=== PATIENT | female | born 1940 | race Caucasian/White ===

== ENCOUNTER 2020-02-18 20:25 | Observation (INO) | payer OTHER, MEDICAID ==
[~2020-02-18] VITALS: Ht 134.6 cm; Wt 33.1 kg
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
[2020-02-18] MEDS ORDERED: IV RINGERS SOLUTION,LACTATED 1,000 ML IV SCH (21:00)
[2020-02-18 21:37] LABS: BASO % 1 % (0-3); EOS % 0 % (0-3); HEMATOCRIT 31.4 % (36.0-47.0); HEMOGLOBIN 10.4 g/dL (12.0-15.5); LYMPH # 1.8 x10^3/uL (1.0-4.8); LYMPH % 28 % (24-48); MEAN CORPUSCULAR HEMOGLOBIN 32 pg (25-35); MEAN CORPUSCULAR HGB CONC 33 g/dL (31-37); MEAN CORPUSCULAR VOLUME 96 fL (79-100); MONO # 0.4 x10^3/uL (0.0-1.1); MONO % 7 % (0-9); NEUT % 64 % (31-73); PLATELET COUNT 239 x10^3/uL (140-400); RED BLOOD COUNT 3.26 x10^6/uL (3.50-5.40); RED CELL DISTRIBUTION WIDTH 14.5 % (11.5-14.5); WHITE BLOOD COUNT 6.3 x10^3/uL (4.0-11.0)
[2020-02-18 22:00] LABS: BARBITURATES NEG (NEG); BENZODIAZEPINES NEG (NEG); CANNABINOIDS NEG (NEG); COCAINE NEG (NEG); METHADONE NEG (NEG); OPIATES NEG (NEG); PHENCYCLIDINE NEG (NEG)
[2020-02-18 22:02] LABS: AMPHETAMINE/METHAMPHETAMINE NEG (NEG); CALCIUM 8.6 mg/dL (8.5-10.1); CREATININE 1.6 mg/dL (0.6-1.0); POTASSIUM 3.1 mmol/L (3.5-5.1)
[2020-02-18 22:13] LABS: ALBUMIN 2.7 g/dL (3.4-5.0); DIRECT BILIRUBIN 0.1 mg/dL (0.0-0.2); MAGNESIUM 1.8 mg/dL (1.8-2.4); TOTAL BILIRUBIN 0.2 mg/dL (0.2-1.0); TOTAL PROTEIN 6.7 g/dL (6.4-8.2)
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
[2020-02-18 22:26] LABS: CLARITY,URINE HAZY; COLOR,URINE YELLOW
[2020-02-18 22:27] LABS: BACTERIA,URINE FEW /HPF (0-FEW); BILIRUBIN,URINE NEG (NEG); GLUCOSE,URINE NEG (NEG); NITRITE,URINE NEG (NEG); RBC,URINE 0 /HPF (0-2); UROBILINOGEN,URINE 0.2 mg/dL (0.2 mg/dL)
[2020-02-18] MEDS ORDERED: FUROSEMIDE 40 MG TABLET PO ONE (23:15)
[2020-02-18] MEDS ORDERED: POTASSIUM CHLORIDE 20 MEQ TABLET.ER. PO ONE (23:15)
[2020-02-18] MEDS ORDERED: ENOXAPARIN 40 MG/0.4 ML SYRINGE. SQ ONE (23:45)
[2020-02-19] MEDS ORDERED: ONDANSETRON PF 4 MG/2 ML VIAL. IVP PRN (00:30)
--- NOTE | 2020-02-19 01:20 | NUR ---
Admission: The patient, ALEXIA GRAHAM, 79 y/o, F admitted by CHANEL WOODRUFF MD, was given written information regarding hospital policies, unit procedures and contact persons. Pt arrived to room 124 via gurney, accompanied by [facility] and nursing sup. Pt came through ED for psych eval, but admitted to medical floor for Dx: CHF, hypokalemia, depression, SI. Discussed POC, pt V/U but will require reinforcement. Call ruff at bedside. Valuables were checked and logged. Placed on room closet.
[2020-02-19 01:32] VITALS: BP 165/68
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
[2020-02-19] MEDS ORDERED: MEMA5TAB PO (04:12)
[2020-02-19] MEDS ORDERED: CARB1TAB46 PO (04:12)
[2020-02-19] MEDS ORDERED: GLYC113C2 TP (04:12)
[2020-02-19] MEDS ORDERED: ALEN70TA6 PO (04:12)
[2020-02-19] MEDS ORDERED: SERT50TA PO (04:12)
[2020-02-19] MEDS ORDERED: MULT-245 PO (04:12)
[2020-02-19] MEDS ORDERED: LEVO25TA4 PO (04:12)
[2020-02-19] MEDS ORDERED: MIRT15TA PO (04:12)
[2020-02-19] MEDS ORDERED: IBUP200T44 PO (04:12)
[2020-02-19] MEDS ORDERED: ONDA-84 PO (04:12)
[2020-02-19] MEDS ORDERED: POTA10TA5 PO (04:12)
[2020-02-19] MEDS ORDERED: ACET325T9 PO (04:12)
[2020-02-19] MEDS ORDERED: CELE100C PO (04:12)
[2020-02-19] MEDS ORDERED: AMLO5TAB10 PO (04:12)
[2020-02-19] MEDS ORDERED: POLY15DR27 EACHEYE (04:12)
[2020-02-19] MEDS ORDERED: MENT118G TP (04:12)
[2020-02-19] MEDS ORDERED: OXYB5TAB10 PO (04:12)
[2020-02-19] MEDS ORDERED: GABA-586 PO (04:12)
--- NOTE | 2020-02-19 06:22 | EKG ---
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
--- NOTE | 2020-02-19 06:35 | NUR ---
Received partial med list from pt's facility, placed calls x2 to request complete med list be faxed. Spoke with two different RN's, still awaiting fax.
[2020-02-19 06:48] VITALS: BP 167/81
[2020-02-19 07:51] LABS: CALCIUM 8.8 mg/dL (8.5-10.1); CREATININE 1.2 mg/dL (0.6-1.0); GFR 43.2; POTASSIUM 3.3 mmol/L (3.5-5.1)
[2020-02-19] MEDS ORDERED: IPRATRPIUM/ALBUTEROL 0.5/2.5MG 3 ML NEBU. NEB SCH (08:00)
[2020-02-19] MEDS: IPRATROPIUM/ALBUTEROL 20/100mcg/INH INHALER. INH SCH ×4 (09:19→20:16)
[2020-02-19 11:00] VITALS: BP 145/59
[2020-02-19] MEDS: SERTRALINE 50 MG TABLET. PO SCH (11:10)
[2020-02-19] MEDS: LEVOTHYROXINE 25 MCG TABLET. PO SCH (11:10)
[2020-02-19] MEDS: MEMANTINE 5 MG TABLET. PO SCH ×2 (11:10→20:15)
[2020-02-19] MEDS: amLODIPine BESYLATE 5 MG TABLET PO SCH (11:11)
[2020-02-19] MEDS: ACETAMINOPHEN 325 MG TABLET PO SCH ×3 (11:11→20:16)
[2020-02-19] MEDS: CARBIDOPA/LEVODOPA 10/100MG TABLET PO SCH ×2 (14:43→20:16)
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
[2020-02-19 16:00] VITALS: BP 123/50
[2020-02-19] MEDS: POTASSIUM CHLORIDE 20 MEQ TABLET.ER. PO SCH (17:40)
[2020-02-19 20:10] VITALS: BP 119/54
[2020-02-19] MEDS: MIRTAZAPINE 15 MG TABLET PO SCH (20:16)
[2020-02-19] MEDS: OXYBUTYNIN CHLORIDE 5 MG TABLET PO SCH (20:16)
[2020-02-19] MEDS: ENOXAPARIN 30 MG/0.3 ML SYRINGE. SQ SCH (20:16)
[2020-02-20 06:40] VITALS: BP 178/83
[2020-02-20] MEDS: MEMANTINE 5 MG TABLET. PO SCH ×2 (08:06→20:12)
[2020-02-20] MEDS: SERTRALINE 50 MG TABLET. PO SCH (08:06)
[2020-02-20] MEDS: POTASSIUM CHLORIDE 20 MEQ TABLET.ER. PO SCH (08:06)
[2020-02-20] MEDS: amLODIPine BESYLATE 5 MG TABLET PO SCH (08:07)
[2020-02-20] MEDS: IPRATROPIUM/ALBUTEROL 20/100mcg/INH INHALER. INH SCH ×4 (08:07→20:00)
[2020-02-20] MEDS: ACETAMINOPHEN 325 MG TABLET PO SCH ×3 (08:07→20:12)
[2020-02-20] MEDS: LEVOTHYROXINE 25 MCG TABLET. PO SCH (08:07)
[2020-02-20] MEDS: CARBIDOPA/LEVODOPA 10/100MG TABLET PO SCH ×3 (08:08→20:12)
--- NOTE | 2020-02-20 08:13 | NUR ---
IP: patient PUI for COVID -19, requires contact and airborne precautions.
[2020-02-20 09:57] LABS: BASO % 0 % (0-3); EOS % 0 % (0-3); HEMATOCRIT 32.9 % (36.0-47.0); LYMPH # 1.4 x10^3/uL (1.0-4.8); LYMPH % 25 % (24-48); MEAN CORPUSCULAR HEMOGLOBIN 32 pg (25-35); MEAN CORPUSCULAR HGB CONC 33 g/dL (31-37); MEAN CORPUSCULAR VOLUME 96 fL (79-100); MONO # 0.4 x10^3/uL (0.0-1.1); MONO % 7 % (0-9); NEUT % 68 % (31-73); PLATELET COUNT 263 x10^3/uL (140-400); RED BLOOD COUNT 3.41 x10^6/uL (3.50-5.40); RED CELL DISTRIBUTION WIDTH 14.4 % (11.5-14.5); WHITE BLOOD COUNT 5.9 x10^3/uL (4.0-11.0)
[2020-02-20 10:14] LABS: CALCIUM 8.8 mg/dL (8.5-10.1); GFR 53.3; POTASSIUM 3.7 mmol/L (3.5-5.1)
[2020-02-20 10:49] VITALS: BP 172/69
--- NOTE | 2020-02-20 12:13 | PN ---
DATE: 02/20/2020 ATTENDING PHYSICIAN: Dr. Woodruff. SUBJECTIVE: The patient is confused. She still has a flat affect. She is sleepy. She has no new somatic complaints. OBJECTIVE FINDINGS: VITAL SIGNS: Blood pressure today is 178/83, pulse 88 and regular, temperature 98.3 degrees Fahrenheit, oxygen saturation 98% on room air. HEENT: Head is without trauma. Pupils are reactive. Sclerae nonicteric. Oropharynx clear. Mucous membranes still a bit dry. NECK: Supple, no bruits. LUNGS: Shallow respirations. CARDIOVASCULAR: Showed regular heart tones. No gallops. ABDOMEN: Soft, scaphoid. No organomegaly. Bowel sounds were hypoactive. EXTREMITIES: Showed contractures. She is nonambulatory. SKIN: Warm and dry. LABORATORY DATA: Repeat hemoglobin today is 11 g/dL, white count 5900. Chemistry panel showed potassium replaced up to 3.7 mEq, creatinine is 1.1 mg/dL. ASSESSMENT: 1. An 79-year-old female from assisted with profound dementia. 2. Suicidal ideation without any active attempt. 3. Major depression with anxiety. 4. Dehydration. 5. Electrolyte abnormalities, hypokalemia, corrected. 6. Alzheimer's dementia. 7. Polyneuropathy. 8. Systolic hypertension of the elderly. PLAN: 1. Comfort measures with pain meds p.r.n. 2. Await COVID-19 swab. 3. mortgage branch manager to discuss with the family. DISPOSITION: The daughter has stated she wanted her to go to [facility]. She is a DNR per advanced directive. We will respect her wishes. CHANEL WOODRUFF MD DR: GREGORY/jael JOB#: [id number] / [id number]
[2020-02-20] MEDS: MORPHINE SULFATE 2 MG/ML DISP.SYRIN. IV PRN ×2 (14:44→17:31)
--- NOTE | 2020-02-20 15:06 | NUR ---
PATIENT WAS CALM AND COOPERATIVE WITH ENCOURAGEMENT UPON ASSESSMENT AND MEDICATION ADMINISTRATION, PATIENT C/O BACK PAIN, MEDS ADMINISTERED CRUSHED IN PUDDING. PATIENT IS CONFUSED AND FORGETFUL AT TIMES, REORIENTED AND INSTRUCTED TO CALL FOR ASSIST, PATIENT DEMONSTRATED UNDERSTANDING. PATIENT GETS UP FOR ADLS WITH ASSIST X1. PATIENT HAD POOR APPETITE THIS AM DURING BREAKFAST AND ONLY HAD A FEW BITES OF PUDDING, HOWEVER PATIENT ENJOYED LUNCH AND STATED " IT WAS TASTY". PATIENT STILL EXPRESSING SI THOUGHT, PATIENT STATED " WHY DON'T YOU LET ME ", PATIENT IS CURRENTLY ON 1:1 OBSERVATION. PATIENT IS CURRENTLY ASLEEP COMFORTABLY IN A BED. WILL CONTINUE TO MONITOR.
[2020-02-20 16:28] VITALS: BP 169/66
[2020-02-20 19:55] VITALS: BP 160/76
[2020-02-20] MEDS: OXYBUTYNIN CHLORIDE 5 MG TABLET PO SCH (20:12)
[2020-02-20] MEDS: MIRTAZAPINE 15 MG TABLET PO SCH (20:12)
[2020-02-20] MEDS: ENOXAPARIN 30 MG/0.3 ML SYRINGE. SQ SCH (20:14)
[2020-02-21] MEDS: MORPHINE SULFATE 2 MG/ML DISP.SYRIN. IV PRN ×5 (02:54→23:02)
[2020-02-21 05:54] VITALS: BP 173/91
--- NOTE | 2020-02-21 09:19 | PN ---
DATE: 02/21/2020 ATTENDING PHYSICIAN: Dr. Woodruff. SUBJECTIVE: The patient remains confused. She is not aware of person, place or time. She has a flat affect. She has no new somatic complaints. She is lying in bed, in the position. Her COVID-19 swab came back negative. OBJECTIVE FINDINGS: VITAL SIGNS: Her blood pressure is 160/76, pulse is 68 and regular. She is afebrile. Oxygen saturation is 98% on room air. HEENT: Head is without trauma. Pupils are reactive. Orbits are a bit sunken. NECK: Supple, no bruits or stridor. LUNGS: Shallow respirations, otherwise good breath sounds. CARDIOVASCULAR: Showed distant heart tones. No gallops. Peripheral pulses are palpable and full. ABDOMEN: Soft, scaphoid, nontender, no distention. Bowel sounds were normal. EXTREMITIES: Showed muscle wasting contractions. She is in a position. FOLLOW-UP LABORATORY STUDIES: Potassium was replaced up to 3.7 mEq, creatinine is improved to 1.0 mg/dL. ASSESSMENT: 1. An 79-year-old female with profound dementia. 2. Mild dehydration. 3. Hypokalemia, corrected. 4. Major depression with anxiety. 5. Suicidal ideation without any attempt. 6. Systolic hypertension of the elderly. 7. Polyneuropathy. PLAN: 1. Comfort measures. 2. We can remove quarantine. 3. She remains a DNR per advanced directive. 4. We are looking for detention placement when available. CHANEL WOODRUFF MD DR: GREGORY/jael JOB#: [id number] / [id number]
[2020-02-21] MEDS: SERTRALINE 50 MG TABLET. PO SCH (09:59)
[2020-02-21] MEDS: ACETAMINOPHEN 325 MG TABLET PO SCH ×3 (09:59→19:48)
[2020-02-21] MEDS: amLODIPine BESYLATE 5 MG TABLET PO SCH (10:00)
[2020-02-21] MEDS: MEMANTINE 5 MG TABLET. PO SCH ×2 (10:00→19:48)
[2020-02-21] MEDS: POTASSIUM CHLORIDE 20 MEQ TABLET.ER. PO SCH (10:00)
[2020-02-21] MEDS: IPRATROPIUM/ALBUTEROL 20/100mcg/INH INHALER. INH SCH ×4 (10:03→20:00)
[2020-02-21] MEDS: CARBIDOPA/LEVODOPA 10/100MG TABLET PO SCH ×3 (10:03→19:48)
[2020-02-21] MEDS: LEVOTHYROXINE 25 MCG TABLET. PO SCH (10:03)
[2020-02-21 10:47] VITALS: BP 158/65
--- NOTE | 2020-02-21 15:20 | NUR ---
Patient's PIV is not flushing. PIV discontinued and new 20g PIV inserted in right forearm. Will continue to monitor.
[2020-02-21 16:12] VITALS: BP 156/74
--- NOTE | 2020-02-21 17:45 | NUR ---
NURSING NOTE SOA/CHEST PAIN THIS NURSE WAS WALKING BY PT ROOM, PT STATED "I CANT BREATHE" AND POINTING AT HER CHEST. PT BP 170/78 OXYGEN 97%. PT NURSE IN ANOTHER ROOM, THIS NURSE PHONED DR WOODRUFF, ORDER OBTAINED FOR EKG. WILL NOTIFY PT NURSE AND CONTINUE TO MONITOR. ADALID CID.
[2020-02-21] MEDS: OXYBUTYNIN CHLORIDE 5 MG TABLET PO SCH (19:48)
[2020-02-21] MEDS: MIRTAZAPINE 15 MG TABLET PO SCH (19:48)
[2020-02-21] MEDS: ENOXAPARIN 30 MG/0.3 ML SYRINGE. SQ SCH (19:49)
[2020-02-21 20:30] VITALS: BP 196/70
[2020-02-21 23:06] VITALS: BP 177/79
--- NOTE | 2020-02-21 23:29 | PDOC ---
Exam Note: Hitesh Note: Please also refer to the separate dictated note~for this date of service dictated separately.~Patient seen individually. Discussed the patient with Nursing staff reviewed the chart.~Reviewed interim history and current functioning. Reviewed vital signs,~Labs/ Radiology~and current medications noted below. Continue current treatment with the changes noted in the dictated addendum note Assessment: Vital Signs/I&O: Vital Signs Date Time Temp Pulse Resp B/P (MAP) Pulse Ox O2 Delivery O2 Flow Rate FiO2 02/21/20 23:06 98.9 80 20 177/79 (111) 97 Room Air 02/20/20 10:49 98.0 I & O 02/20/20 02/20/20 02/21/20 15:00 23:00 07:00 Intake Total 120 ml 320 ml Output Total 1 ml Balance 119 ml 320 ml Current Medications: I have reviewed the current psychotropics carefully including drug interactions. Risk benefit ratio favors no change other than as noted in my dictated progress note. Diagnosis: Problems: (1) Depression (2) CHF (congestive heart failure) REBECA HERNANDEZ MD Feb 21, 2020 23:29
--- NOTE | 2020-02-22 00:33 | CONS ---
DATE OF CONSULTATION: 02/21/2020 PSYCHIATRIC CONSULTATION IDENTIFYING DATA: The patient is an 79-year-old female seen for a psychiatric consultation on [address], room [address] Kelly on account of the patient's depression within the context of her dementia. The patient was referred from [facility] by her primary care physician because of worsening symptoms of depression, making statements she wanted to . The patient had failed outpatient psychiatric interventions. Behaviors were deemed dangerous. Potential risk to herself admitted by her family who is her DPOA for psychiatric stabilization. The patient was seen individually on telehealth rounds. Discussed with ADALID Galindo. Reviewed the chart. CHIEF COMPLAINT: "I don't know." The patient is quite withdrawn, not very verbally interactive, confused. Per nursing staff at times she has been oriented x 2, other times just x 1 as she was earlier today when I interviewed her on telehealth rounds. HISTORY OF PRESENT ILLNESS: The patient has a history of dementia, Alzheimer's vascular type. She has been residing at [facility]. More recently getting more depressed, hopeless, helpless, worthless, isolative, withdrawn. She has had sleep and appetite changes, suicidal ideation, making statements she wanted to end her life. She has been somewhat paranoid. No active homicidal ideation. No symptoms of bipolar disorder. PAST PSYCHIATRIC HISTORY: As above. MEDICAL HISTORY: Positive for arthritis, malnutrition. CODE STATUS: DNR. DRUG ALLERGIES: Negative. ACCU-CHEKS: None. DIET: Dysphagia 2. She takes her meds floated in yogurt or pudding, ambulates in a wheelchair. CURRENT PSYCHOTROPICS: Remeron 15 mg at bedtime, Zoloft 150 mg a day, Namenda 5 mg b.i.d. She is also on Sinemet 10/100 mg t.i.d. FAMILY HISTORY: Noncontributory. SOCIAL HISTORY: No history of alcohol, drug abuse, physical, sexual or elder abuse. She is not known to be a perpetrator. REACTION TO HOSPITALIZATION: The patient oblivious of this. REVIEW OF SYSTEMS: No CV, , pulmonary, eye, ENT system symptoms on review. Reliability poor. MENTAL STATUS EXAMINATION: Oriented to herself. Insight, judgment, recent and remote memory, attention, concentration, fund of knowledge poor, consistent with her diagnoses. LABORATORY DATA: Reviewed. IMPRESSION: Major neurocognitive disorder, Alzheimer, vascular with delusion, depression, behavioral disturbance; anxiety disorder, unspecified; impulse control disorder, unspecified. Rest as above. PLAN: Admit to Geropsychiatry Unit at [facility]. I will see the patient daily individually from a psychiatric standpoint and she may need to be transferred to the [facility] when she is deemed medically stable and if symptoms persist we will monitor her baseline, then adjust psychotropics as clinically indicated. MAN Jessica HERNANDEZ MD DR: ANDREA/jael JOB#: [id number] / [id number]
[2020-02-22 05:21] VITALS: BP 160/90
--- NOTE | 2020-02-22 06:07 | EKG ---
[facility] [address] [place] [address] Test Date: 2020-02-21 Test Time: 17:58:08 Pat Name: ALEXIA GRAHAM Department: Room: 124 A Gender: F Porter Baggage: : 1940 Requested By: CHANEL WOODRUFF Order Number: [id number] Reading MD: Measurements Intervals [place] Rate: 89 P: 63 IN: 120 QRS: 70 QRSD: 82 T: 86 QT: 332 QTc: 405 Interpretive Statements SINUS RHYTHM LEFT ATRIAL ABNORMALITY AMPLITUDE CRITERIA FOR [facility] QRS(T) CONTOUR ABNORMALITY CONSIDER ANTEROLATERAL MYOCARDIAL DAMAGE CONSIDER INFERIOR MYOCARDIAL DAMAGE ABNORMAL ECG RI6.01 No previous ECG available for comparison
[2020-02-22] MEDS: IPRATROPIUM/ALBUTEROL 20/100mcg/INH INHALER. INH SCH ×4 (08:20→19:52)
[2020-02-22] MEDS: ACETAMINOPHEN 325 MG TABLET PO SCH ×3 (08:20→19:50)
[2020-02-22] MEDS: LEVOTHYROXINE 25 MCG TABLET. PO SCH (08:21)
[2020-02-22] MEDS: CARBIDOPA/LEVODOPA 10/100MG TABLET PO SCH ×3 (08:21→19:51)
[2020-02-22] MEDS: amLODIPine BESYLATE 5 MG TABLET PO SCH (08:21)
[2020-02-22] MEDS: SERTRALINE 50 MG TABLET. PO SCH (08:21)
[2020-02-22] MEDS: MEMANTINE 5 MG TABLET. PO SCH ×2 (08:21→19:50)
[2020-02-22] MEDS: POTASSIUM CHLORIDE 20 MEQ TABLET.ER. PO SCH (08:22)
--- NOTE | 2020-02-22 10:03 | EKG ---
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
[2020-02-22 11:17] VITALS: BP 151/70
[2020-02-22 14:58] VITALS: BP 145/62
[2020-02-22] MEDS: MORPHINE SULFATE 2 MG/ML DISP.SYRIN. IV PRN (15:09)
[2020-02-22] MEDS ORDERED: traZODone 50 MG TABLET. PO PRN (18:00)
[2020-02-22] MEDS: MIRTAZAPINE 15 MG TABLET PO SCH (19:50)
[2020-02-22] MEDS: OXYBUTYNIN CHLORIDE 5 MG TABLET PO SCH (19:50)
[2020-02-22] MEDS: ENOXAPARIN 30 MG/0.3 ML SYRINGE. SQ SCH (19:53)
[2020-02-22 20:00] VITALS: BP 164/73
--- NOTE | 2020-02-22 22:11 | PN ---
DATE: 02/22/2020 SUBJECTIVE: The patient is an 79-year-old female patient who apparently was admitted with suicidal ideation without any attempt. She was found to be mildly dehydrated and hypokalemic and for her major depression and anxiety, she was seen by Dr. Daniels and who adjusted her psychotropic medication. When I saw her this afternoon, she was resting slightly propped up in bed, in no apparent distress. She was pale, extremely cachectic, complaining of abdominal pain and back pain. OBJECTIVE: VITAL SIGNS: Her heart rate was 93, blood pressure was 145/62, temperature was 98.6, respiratory rate 20, and oxygen saturation was 95%. HEAD, EYES, EARS, NOSE AND THROAT: Showed normocephalic, atraumatic. NECK: Supple. CARDIAC: Normal first and second heart sounds. No gallop or murmur. CHEST: Clear to auscultation. No crepitation or rhonchi. ABDOMEN: Scaphoid, soft, nontender. NEUROLOGIC: She is profoundly demented, but without any obvious lateralizing sign. All her cranial nerves are intact. She moves upper extremities without difficulty; however, she is mostly bedbound, chair bound. Her intake over the last 24 hours was 440. No output was recorded. LABORATORY DATA: Showed white cell count 5900, hemoglobin 11, hematocrit 33, MCV 96, and platelet count 263,000. Her chemistry showed a serum sodium 141, potassium 3.7, chloride 104, bicarbonate 31, anion gap of 6, BUN 28, creatinine 1, estimated GFR was 53 mL per minute. Her glucose was 91, calcium was 8.8. Her prothrombin time, INR and aPTT were normal. D-dimer was slightly elevated. Urinalysis showed small amount of proteinuria, but otherwise unremarkable and her toxic screen was negative. Her coronavirus-2 PCR was not detected. ASSESSMENT: 1. In summary, this is an 79-year-old female patient with profound dementia. 2. Dehydration and acute kidney injury, resolved. 3. Hypokalemia, resolved. 4. Major depression with anxiety. 5. Suicidal ideation without any attempt. 6. Systolic hypertension. 7. Polyneuropathy. PLAN: She is scheduled to be discharged to [facility] tomorrow to go on hospice care. LETI GARZA MD DR: SERGEY/jael JOB#: [id number] / [id number]
--- NOTE | 2020-02-22 22:35 | PDOC ---
Exam Note: Hitesh Note: Subjective: The patient was reviewed on telehealth rounds due to COVID-19 restrictions on the unit in the evening of 02/22/2020 with Mateo CORDOBA. Discussed with nursing staff, reviewed the chart. The patient remains confused. Per nursing staff she is noted to be needy and attention seeking. She was having various somatic symptoms earlier in the day, complained of choking, stated she has fallen but none of this was true. She slept reasonably at night after she received morphine at 7.50 p.m. and then 11 p.m. We will go ahead and add trazodone 50 mg h.s. insomnia, may repeat x1. She also gets somewhat psychotic and agitated and we will add Zyprexa 2.5 mg q.2h. p.r.n. psychosis and agitated maximum 7.5 mg in 24 hours. Review of Systems: Ambulation impaired. She has vague somatic symptoms. No CV, , pulmonary system symptoms on review. Mental Status Exam: Oriented to herself. 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 We are unable to corroborate this. She seems a little more lucid today as compared to yesterday, less paranoid as well. Abstraction fair. Computation impaired. Language functions intact. Attention span short. Mood and affect somewhat anxious, labile. Laboratory Data: Reviewed. Impression: Major neurocognitive disorder, Alzheimer, vascular with delusion, depression, behavioral disturbance. Anxiety disorder unspecified. Rest unchanged. Plan: Add trazodone and Zyprexa as noted. Maintain Remeron 15 mg h.s. and Zoloft 150 mg a day. May need to adjust Namenda. If behavioral dyscontrol persists, may consider [facility] when she is medically stable. Assessment: Vital Signs/I&O: Vital Signs Date Time Temp Pulse Resp B/P (MAP) Pulse Ox O2 Delivery O2 Flow Rate FiO2 02/22/20 21:00 Room Air 02/22/20 20:00 98.1 100 20 164/73 (103) 96 02/20/20 10:49 98.0 I & O 02/21/20 02/21/20 02/22/20 14:59 22:59 06:59 Intake Total 480 ml 240 ml 120 ml Balance 480 ml 240 ml 120 ml Current Medications: Meds: Current Medications Medications (Trade) Dose Ordered Sig/Kamilah Route PRN Reason Start Time Stop Time Status Last Admin Dose Admin Olanzapine (ZyPREXA ZYDIS) 2.5 mg PRN Q2HR PRN PO PSYCHOSIS 02/22/20 18:00 02/22/20 19:50 Trazodone HCl (Desyrel) 50 mg PRN QHS PRN PO INSOMNIA, MAY REPEAT X1 02/22/20 18:00 02/22/20 19:50 I have reviewed the current psychotropics carefully including drug interactions. Risk benefit ratio favors no change other than as noted in my dictated progress note. Diagnosis: Problems: (1) Major neurocognitive disorder (2) Dementia in Alzheimer's disease with depression (3) Dementia in Alzheimer's disease with delusions (4) Dementia of the Alzheimer's type with early onset with behavioral disturbance (5) Dementia, vascular, with delusions (6) Dementia, vascular, with depression (7) Anxiety disorder, unspecified (8) Impulse control disorder, unspecified REBECA HERNANDEZ MD Feb 22, 2020 22:35
[2020-02-22 23:05] VITALS: BP 110/59
[2020-02-23] MEDS: MORPHINE SULFATE 2 MG/ML DISP.SYRIN. IV PRN (02:27)
--- NOTE | 2020-02-23 05:50 | NUR ---
Pt was calling out during change of shift. When pt was asked what can be done for her she stated "I don't need anything" Pt was very anxious and then continued to yell out. Pt appeared anxious upon assessment but was cooperative. Pt was given Zyprexa w/ HS meds as indicated. Pt took meds crushed in vanilla ice cream and tolerated them well. Pt calmed down after PRN Zyprexa but then later complained of pain in her neck and received PRN Morphine. Pt then rested comfortably in the night w/ less behaviors.
[2020-02-23 06:22] VITALS: BP 192/95
[2020-02-23] MEDS: LEVOTHYROXINE 25 MCG TABLET. PO SCH (08:36)
[2020-02-23] MEDS: ACETAMINOPHEN 325 MG TABLET PO SCH (08:36)
[2020-02-23] MEDS: POTASSIUM CHLORIDE 20 MEQ TABLET.ER. PO SCH (08:36)
[2020-02-23] MEDS: SERTRALINE 50 MG TABLET. PO SCH (08:36)
[2020-02-23] MEDS: CARBIDOPA/LEVODOPA 10/100MG TABLET PO SCH (08:36)
[2020-02-23 08:37] VITALS: BP 192/95
[2020-02-23] MEDS: IPRATROPIUM/ALBUTEROL 20/100mcg/INH INHALER. INH SCH (08:37)
[2020-02-23] MEDS: MEMANTINE 5 MG TABLET. PO SCH (08:37)
[2020-02-23] MEDS: amLODIPine BESYLATE 5 MG TABLET PO SCH (08:37)
--- NOTE | 2020-02-23 11:07 | NUR ---
Pt sleeping in her bed when approached for AM med pass and assessment. She was easily aroused and was able to take her meds crushed in vanilla pudding. Pt denied any pain or SOA. PRN zyprexa given prior to being transferred to [facility]. Pt quickly went back to sleep after interaction.
--- NOTE | 2020-02-23 11:36 | NUR ---
Pt discharged to [facility]. Report given to Mackenzie. Pt discharge instructions and prescriptions given to EMS. Family notified of pt d/c.
[2020-02-23] MEDS ORDERED: IPRA4AER INH (11:51)
--- NOTE | 2020-02-23 13:28 | DS ---
DATE OF DISCHARGE: 02/23/2020 HOSPITAL COURSE: The patient is an 79-year-old female patient who was admitted with suicidal ideation without any attempt. She was found to be mildly dehydrated, hypokalemic and for her major depression and anxiety, she was seen by Dr. Daniels, who made adjustment to her psychotropic medication. PHYSICAL EXAMINATION: GENERAL: When I saw her today, she looked well and was clearly in no apparent respiratory distress. No pallor, jaundice, cyanosis or thyromegaly. No jugular venous distention. No limb edema. VITAL SIGNS: Her heart rate was 73, blood pressure was 192/95, temperature 97.6, respiratory rate was 16, and oxygen saturation was 98%. HEAD, EYES, EARS, NOSE AND THROAT: Showed normocephalic, atraumatic. NECK: Supple. HEART: Showed normal first and second heart sounds. No gallop or murmur. CHEST: Clear to auscultation. No crepitation or rhonchi. ABDOMEN: Soft, nontender. NEUROLOGIC: She has profound dementia; however, all her cranial nerves are intact. She moves upper extremities without difficulty. She is mostly bedbound, chair bound. Her intake over the last 24 hours was 814, output was recorded. LABORATORY DATA: This morning showed serum sodium 141, potassium 3.7, chloride 104, bicarbonate 31, anion gap of 6, BUN 28, creatinine 1, estimated GFR was 53 mL per minute. Her glucose was 91, calcium was 8.8. DISCHARGE MEDICATIONS: She was discharged to [facility] to continue on acetaminophen 650 mg 3 times a day, amlodipine 5 mg once a day, carbidopa/levodopa 10/100, 3 times a day, ipratropium bromide, albuterol sulfate, Combivent Respimat inhaler 1 puff 4 times a day, levothyroxine sodium 25 mcg once a day, Namenda 5 mg twice a day, mirtazapine for Remeron 15 mg at bedtime, oxybutynin chloride 5 mg at bedtime, sertraline for Zoloft 150 mg once a day. FINAL DISCHARGE DIAGNOSES: 1. Profound dementia. 2. Acute kidney injury, resolved. 3. Hypokalemia, resolved. 4. Systolic hypertension. 5. Polyneuropathy. LETI GARZA MD DR: SERGEY/jael JOB#: [id number] / [id number]
== END 2020-02-23 10:30 ==
LOC: ER 20:25 → INTOOBSV 02-19 01:02 → 1 SOUTH 02-19 01:02
PROVIDERS: ADMIT Hospitalist; ATTEND Internal Medicine
DX: G30.9 Alzheimer's disease, unspecified (principal); Z20.828 Contact with and (suspected) exposure to other viral communicable diseases; F02.80 Dementia in other diseases classified elsewhere, unspecified severity, without behavioral disturbance, psychotic disturbance, mood disturbance, and anxiety; R45.851 Suicidal ideations; F41.8 Other specified anxiety disorders; R53.81 Other malaise; D64.9 Anemia, unspecified; E87.6 Hypokalemia; I11.0 Hypertensive heart disease with heart failure; I50.9 Heart failure, unspecified; N17.9 Acute kidney failure, unspecified; G62.9 Polyneuropathy, unspecified; M19.90 Unspecified osteoarthritis, unspecified site; E46 Unspecified protein-calorie malnutrition; E86.0 Dehydration; E03.9 Hypothyroidism, unspecified; G47.00 Insomnia, unspecified; Z68.1 Body mass index [BMI] 19.9 or less, adult; Z79.899 Other long term (current) drug therapy
CPT/HCPCS: 36415; 71045; 80048; 80076; 80307; 81001; 82550; 83690; 83735; 83880; 84443; 84484; 85025; 85379; 85610; 85730; 87086; 93005; 96361; 96372; 96374; 96376; 99285; G0238; G0378; J1650; J2270; J7120; U0003; 96360; G0379

== ENCOUNTER 2020-12-11 09:11 | Emergency (ER) | payer OTHER, MEDICAID ==
[~2020-12-11] VITALS: Ht 134.6 cm; Wt 33.1 kg
[~2020-12-11 09:11] MED LIST: ACET325T9 PO; ALEN70TA71 PO; AMLO-186 PO; CARB1TAB46 PO; CELE100C PO; GABA-586 PO; GLYC113C2 TP; IBUP200T44 PO; IPRA4AER INH; LEVO25TA4 PO; MEMA5TAB PO; MENT118G TP; MIRT-37 PO; MULT-245 PO; ONDA-84 PO; OXYB5TAB10 PO; POLY15DR27 EACHEYE; POTA10TA5 PO; SERT50TA PO
[2020-12-11 09:16] VITALS: BP 182/90
[2020-12-11] MEDS ORDERED: NEOMY/BACITR/POLYMYXIN OINT PACKET. TP ONE (10:00)
[2020-12-11] MEDS ORDERED: IV NORMAL SALINE 500ML 500 ML IV ONE (10:00)
[2020-12-11 10:16] LABS: BASO % 1 % (0-3); EOS % 0 % (0-3); HEMOGLOBIN 11.8 g/dL (12.0-15.5); LYMPH # 2.5 x10^3/uL (1.0-4.8); LYMPH % 30 % (24-48); MEAN CORPUSCULAR HEMOGLOBIN 31 pg (25-35); MEAN CORPUSCULAR HGB CONC 33 g/dL (31-37); MEAN CORPUSCULAR VOLUME 95 fL (79-100); MONO # 0.5 x10^3/uL (0.0-1.1); MONO % 6 % (0-9); NEUT # 5.5 x10^3uL (1.8-7.7); NEUT % 64 % (31-73); PLATELET COUNT 292 x10^3/uL (140-400); RED BLOOD COUNT 3.78 x10^6/uL (3.50-5.40); RED CELL DISTRIBUTION WIDTH 13.3 % (11.5-14.5); WHITE BLOOD COUNT 8.5 x10^3/uL (4.0-11.0)
[2020-12-11 10:30] LABS: CALCIUM 9.4 mg/dL (8.5-10.1); CREATININE 1.1 mg/dL (0.6-1.0); GFR 47.7; POTASSIUM 4.8 mmol/L (3.5-5.1)
[2020-12-11 10:36] LABS: ALBUMIN 3.7 g/dL (3.4-5.0); ALBUMIN/GLOBULIN RATIO 0.9 (1.0-1.7); TOTAL BILIRUBIN 0.3 mg/dL (0.2-1.0); TOTAL PROTEIN 7.8 g/dL (6.4-8.2)
[2020-12-11 10:45] LABS: BILIRUBIN,URINE NEG (NEG); CLARITY,URINE CLEAR; COLOR,URINE YELLOW; GLUCOSE,URINE NEG (NEG); NITRITE,URINE NEG (NEG); UROBILINOGEN,URINE 0.2 mg/dL (0.2 mg/dL)
[2020-12-11 10:46] LABS: BACTERIA,URINE MOD /HPF (0-FEW); RBC,URINE 0 /HPF (0-2)
--- NOTE | 2020-12-11 10:52 | RAD ---
EXAM: Right shoulder, 3 views; right knee, 3 views; chest, single view; pelvis and right hip, 3 views . HISTORY: Trauma. Pain. COMPARISON: None. FINDINGS: Chest: A frontal view the chest is obtained. There is no infiltrate, pleural effusion or pn eumothorax. The heart is normal in size. There are circumscribed nodules overlying the bilateral thor ax due to nipple shadows. Right shoulder: 3 views of the right shoulder obtained. There is no fracture. There are sclerotic mabel nges within the superior humeral head suggesting avascular necrosis. There is mild glenohumeral joint osteoarthritis. There is decreased subacromial space which may be projectional or due to a chronic r otator cuff tear. Right knee: 3 views the right knee are obtained. There is no fracture, dislocation or subluxation. Th ere is no joint effusion. There is suspected bone demineralization. Pelvis and right hip: A frontal view the pelvis and 2 views of the right hip are obtained. There is n o acute fracture, dislocation or subluxation. There is suspected bone demineralization. There is jaya re lumbar scoliosis and degenerative change throughout the visualized lumbar spine. There are chronic lateral wedge deformities of the mid lower lumbar vertebral bodies due to aforementioned scoliosis. IMPRESSION: 1. No acute pulmonary or osseous finding. 2. Mild right glenohumeral osteoarthritis. 3. 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 4. Decreased right subacromial space, projectional or due to a chronic rotator cuff tear. 5. Severe degenerative change and scoliosis involving the visualized lumbar spine, not formally asses sed on this exam. 6. Suspected bone demineralization. Electronically signed by: Nisa De Leon MD (12/11/2020 10:50 AM) [id number]
--- NOTE | 2020-12-11 11:05 | RAD ---
Exam Date: 12/11/2020 9:[address] HEAD AND C-SPINE WO Indication: Reason: pain s/p fall / Spl. Instructions: / History: . One or more of the following dose reduction techniques were utilized: *Automated exposure control (AEC) *Adjustment of mA and/or kV according to patient size *Use of iterative reconstruction technique *CT scan done according to ALARA, or ALARA/IMAGE GENTLY EXAMINATION: CT OF THE HEAD WITHOUT CONTRAST INDICATION: Trauma, head injury, headache; TECHNIQUE: Noncontrast helical axial CT images of the head were obtained. FINDINGS: The ventricles and sulci are prominent consistent with cerebral volume loss. Patchy ill-defined low attenuation areas in the subcortical and periventricular white matter bilaterally are consistent with microvascular disease. There is no evidence of acute intracranial hemorrhage, extra-axial collecti on, mass effect, midline shift, or acute territorial infarct. No lesion of the skull base or the calv arium is seen. The visualized paranasal sinuses, mastoid air cells, and orbits are normal in appearan ce. IMPRESSION: No evidence for acute intracranial abnormality. Volume loss and microvascular disease. EXAMINATION: CT OF THE CERVICAL SPINE WITHOUT CONTRAST Clinical Indication: Cervical spine pain after trauma Technique: Thin cut helical axial CT images through the cervical spine were obtained without contrast on a multi-detector CT scanner. Source data was then reconstructed into sagittal and coronal planes. Findings: There is grade 1/grade 2 anterolisthesis of C3 on C4, which is likely degenerative given the lack of adjacent soft tissue swelling. Moderate to severe multilevel degenerative changes are noted. There is reversal of cervical lordosis. There is no severe osseous central canal stenosis. Vertebral body heights are maintained without acute fracture. No significant prevertebral soft tissue swelling is demonstrated. Impression: No evidence of acute cervical spine fracture. Grade 1/grade 2 anterolisthesis of C3 on C 4 is likely degenerative given the lack of adjacent soft tissue swelling. However, if there is candace nued clinical concern for cervical spine injury, consider further evaluation with MRI. Electronically signed by: Fredi Sosa MD (12/11/2020 11:03 AM) [id number]
[2020-12-11] MEDS ORDERED: NAPR220C62 PO (11:21)
--- NOTE | 2020-12-11 11:21 | PHYS DOC ---
Past History Past Medical History: Anxiety, Arthritis, Dementia, Depression, Other Additional Past Medical Histor: ALZHEIMERS, INSOMNIA, LOW BACK PAIN, Parkinsons, Anorexia, chronic pain Past Surgical History: Other Additional Past Surgical Histo: UNKNOWN Alcohol Use: None General Adult EDM: Chief Complaint: MECHANICAL FALL HPI: HPI: Patient is a [age] year old [sex] who presents with [] Review of Systems: Review of Systems: Constitutional: Denies fever or chills Eyes: Denies change in visual acuity HENT: Denies nasal congestion or sore throat Respiratory: Denies cough or shortness of breath Cardiovascular: Denies chest pain or edema GI: Denies abdominal pain, nausea, vomiting, bloody stools or diarrhea : Denies dysuria Musculoskeletal: Denies back pain or joint pain Integument: Denies rash Neurologic: Denies headache, focal weakness or sensory changes Endocrine: Denies polyuria or polydipsia Lymphatic: Denies swollen glands Psychiatric: Denies depression or anxiety Current Medications: Current Meds: Current Medications Medications (Trade) Dose Ordered Sig/Kamilah Start Time Stop Time Status Last Admin Dose Admin Fentanyl Citrate (Fentanyl 2ml Vial) 25 mcg 1X ONCE 12/11/20 10:00 12/11/20 10:04 DC 12/11/20 10:38 25 MCG Neomycin/ Polymyxin/ Bacitracin (Triple Antibiotic Ointment) 1 pkt 1X ONCE 12/11/20 10:00 12/11/20 10:04 DC 12/11/20 10:38 1 PKT Sodium Chloride 500 ml @ 0 mls/hr 1X ONCE 12/11/20 10:00 12/11/20 10:04 DC 12/11/20 10:39 100 MLS/HR Allergies: Allergies: Allergies Coded Allergies Type Severity Reaction Last Updated Verified No Known Drug Allergies 02/18/20 No Physical Exam: PE: Constitutional: Well developed, well nourished, no acute distress, non-toxic appearance. [] HENT: Normocephalic, atraumatic, bilateral external ears normal, oropharynx moist, no oral exudates, nose normal. [] Eyes: PERRLA, EOMI, conjunctiva normal, no discharge. [] Neck: Normal range of motion, no tenderness, supple, no stridor. [] Cardiovascular:Heart rate regular rhythm, no murmur [] Lungs & Thorax: Bilateral breath sounds clear to auscultation [] Abdomen: Bowel sounds normal, soft, no tenderness, no masses, no pulsatile masses. [] Skin: Warm, dry, no erythema, no rash. [] Back: No tenderness, no CVA tenderness. [] Extremities: No tenderness, no cyanosis, no clubbing, ROM intact, no edema. [] Neurologic: Alert and oriented X 3, normal motor function, normal sensory function, no focal deficits noted. [] Psychologic: Affect normal, judgement normal, mood normal. [] Current Patient Data: Labs: Laboratory Tests Test 12/11/20 10:02 12/11/20 10:15 White Blood Count 8.5 x10^3/uL (4.0-11.0) Red Blood Count 3.78 x10^6/uL (3.50-5.40) Hemoglobin 11.8 g/dL (12.0-15.5) L Hematocrit 36.0 % (36.0-47.0) Mean Corpuscular Volume 95 fL (79-100) Mean Corpuscular Hemoglobin 31 pg (25-35) Mean Corpuscular Hemoglobin Concent 33 g/dL (31-37) Red Cell Distribution Width 13.3 % (11.5-14.5) Platelet Count 292 x10^3/uL (140-400) Neutrophils (%) (Auto) 64 % (31-73) Lymphocytes (%) (Auto) 30 % (24-48) Monocytes (%) (Auto) 6 % (0-9) Eosinophils (%) (Auto) 0 % (0-3) Basophils (%) (Auto) 1 % (0-3) Neutrophils # (Auto) 5.5 x10^3uL (1.8-7.7) Lymphocytes # (Auto) 2.5 x10^3/uL (1.0-4.8) Monocytes # (Auto) 0.5 x10^3/uL (0.0-1.1) Eosinophils # (Auto) 0.0 x10^3/uL (0.0-0.7) Basophils # (Auto) 0.0 x10^3/uL (0.0-0.2) Sodium Level 141 mmol/L (136-145) Potassium Level 4.8 mmol/L (3.5-5.1) Chloride Level 104 mmol/L (98-107) Carbon Dioxide Level 29 mmol/L (21-32) Anion Gap 8 (6-14) Blood Urea Nitrogen 24 mg/dL (7-20) H Creatinine 1.1 mg/dL (0.6-1.0) H Estimated GFR (Cockcroft-Gault) 47.7 BUN/Creatinine Ratio 22 (6-20) H Glucose Level 83 mg/dL (70-99) Calcium Level 9.4 mg/dL (8.5-10.1) Magnesium Level 2.0 mg/dL (1.8-2.4) Total Bilirubin 0.3 mg/dL (0.2-1.0) Aspartate Amino Transferase (AST) 28 U/L (15-37) Alanine Aminotransferase (ALT) 23 U/L (14-59) Alkaline Phosphatase 92 U/L (46-116) Total Protein 7.8 g/dL (6.4-8.2) Albumin 3.7 g/dL (3.4-5.0) Albumin/Globulin Ratio 0.9 (1.0-1.7) L Urine Collection Type U cath Urine Color Yellow Urine Clarity Clear Urine pH 8.0 Urine Specific Catarina 1.020 Urine Protein Neg (NEG-TRACE) Urine Glucose (UA) Neg mg/dL (NEG) Urine Ketones (Stick) Neg mg/dL (NEG) Urine Blood Neg (NEG) Urine Nitrite Neg (NEG) Urine Bilirubin Neg (NEG) Urine Urobilinogen Dipstick 0.2 mg/dL (0.2 mg/dL) Urine Leukocyte Esterase Small (NEG) Urine RBC 0 /HPF (0-2) Urine WBC 1-4 /HPF (0-4) Urine Bacteria Mod /HPF (0-FEW) Vital Signs: Vital Signs Date Time Temp Pulse Resp B/P (MAP) Pulse Ox O2 Delivery O2 Flow Rate FiO2 12/11/20 11:13 102 14 97 Room Air 12/11/20 09:16 97.7 182/90 EKG: EKG: [] Radiology/Procedures: Radiology/Procedures: [] Heart Score: Risk Factors: Risk Factors: DM, Current or recent (<one month) smoker, HTN, HLP, family history of CAD, obesity. Risk Scores: Score 0 - 3: 2.5% MACE over next 6 weeks - Discharge Home Score 4 - 6: 20.3% MACE over next 6 weeks - Admit for Clinical Observation Score 7 - 10: 72.7% MACE over next 6 weeks - Early Invasive Strategies Course & Med Decision Making: Course & Med Decision Making Pertinent Labs and Imaging studies reviewed. (See chart for details) [] Kumar Disclaimer: Kumar Disclaimer: This electronic medical record was generated, in whole or in part, using a voice recognition dictation system. Departure Departure: Impression: Primary Impression: Fall Qualified Codes: W19.XXXA - Unspecified fall, initial encounter Additional Impressions: Chronic right shoulder pain Chronic pain of right knee Abrasion of forehead Qualified Codes: S00.81XA - Abrasion of other part of head, initial encounter Disposition: HOME / SELF CARE / HOMELESS (back to senior living) Condition: STABLE Referrals: NAKITA PANTOJA MD (PCP) Patient Instructions: Abrasion, [id number], Chronic Pain Management, Fall Prevention and Home Safety, [id number] Additional Instructions: Do not soak your wound. You may shower. Clean wound daily with soap and water. Change dressing 2 times daily. Use over the counter antibiotic ointment with each dressing change. Scripts Naproxen Sodium (NAPROXEN SODIUM) 220 Mg Capsule 1 CAP PO BID for Pain, #30 CAP 0 Refills Prov: JOSUE ARITA DO 12/11/20 JOSUE ARITA DO Dec 11, 2020 11:21
== END 2020-12-11 11:38 | disposition home or self-care (01) ==
LOC: ER 09:11
DX: S00.81XA Abrasion of other part of head, initial encounter (principal); M25.561 Pain in right knee; M25.511 Pain in right shoulder; G89.29 Other chronic pain; F41.9 Anxiety disorder, unspecified; M19.90 Unspecified osteoarthritis, unspecified site; F03.90 Unspecified dementia, unspecified severity, without behavioral disturbance, psychotic disturbance, mood disturbance, and anxiety; F32.9 Major depressive disorder, single episode, unspecified; G20 Parkinson's disease; W18.39XA Other fall on same level, initial encounter; Y93.89 Activity, other specified; Y92.89 Other specified places as the place of occurrence of the external cause; Y99.8 Other external cause status
CPT/HCPCS: 36415; 70450; 71045; 72125; 73030; 73502; 73562; 80053; 81001; 83735; 85025; 87086; 96361; 96374; 99285; J3010; J7040

== ENCOUNTER 2021-07-02 00:21 | Emergency (ER) | payer OTHER, MEDICAID ==
[~2021-07-02] VITALS: Ht 134.6 cm; Wt 46.2 kg
[~2021-07-02 00:21] MED LIST changes: +NAPR220C62 PO; +POTA-112 PO; -POTA10TA5 PO
--- NOTE | 2021-07-02 01:04 | PHYS DOC ---
Past History Past Medical History: Anxiety, Arthritis, Dementia, Depression, Other Additional Past Medical Histor: ALZHEIMERS, INSOMNIA, LOW BACK PAIN, Parkinsons, Anorexia, chronic pain Past Medical History Limited secondary to dementia Past Surgical History: Other Additional Past Surgical Histo: UNKNOWN Past Surgical History Limited secondary to dementia Alcohol Use: None Drug Use: None Social History Lives at [facility] Limited secondary to dementia General Adult EDM: Chief Complaint: MECHANICAL FALL HPI: HPI: Lynn Quinonez 80 yoFe presents [facility] ED via EMS for an unwitnessed fall and head trauma. She reports that she was sitting in her wheelchair and dropped a piece of food, when she bent over and fell out of her wheelchair onto her head. She denies headache, dizziness, changes in hearing, changes to vision, or neck pain Patient denies any associated symptoms. Patient has not in any pain at this time. HPI is limited secondary to decreased mental baseline due to Alzheimer's dementia. Review of Systems: Review of Systems: Constitutional: Denies fever or chills HENT: Denies epistaxis Respiratory: Denies cough Cardiovascular: Denies chest pain GI: Denies vomiting Musculoskeletal: Denies deformity Integument: Denies laceration; reports forehead abrasion Neurologic: Denies headache Review of systems limited secondary to Alzheimer's dementia. Current Medications: Current Meds: Current Medications Medications (Trade) Dose Ordered Sig/Kamilah Start Time Stop Time Status Last Admin Dose Admin Neomycin/ Polymyxin/ Bacitracin (Triple Antibiotic Ointment) 1 pkt 1X ONCE 07/02/21 01:00 07/02/21 01:01 Allergies: Allergies: Allergies Coded Allergies Type Severity Reaction Last Updated Verified No Known Drug Allergies 02/18/20 No Physical Exam: PE: Constitutional: Elderly frail appearance, no acute distress, non-toxic appearance HENT: Normocephalic, abrasion moderately healed superior L forehead near hairline, non-bleeding less healed mid-forehead abrasion, no laceration noted. Eyes: Conjunctiva normal, no discharge Neck: Normal range of motion, no midline tenderness, supple, negative Spurlings exam Lungs & Thorax: No respiratory distress, equal chest rise and fall, CTAB Cardiovascular: RRR w/o murmur, +2/4 distal pulses b/l UE/LE, capillary refill b/l UE 1-2 seconds Abdomen: Soft, no tenderness; pelvis stable and nontender Skin: Warm, dry, no erythema, no rash, crepe like skin, thin Back: No tenderness, no CVA tenderness Extremities: No tenderness, ROM intact, no edema Neurologic: Alert and oriented X 2, normal motor function, no focal deficits noted Psychologic: Affect normal, judgment abnormal Current Patient Data: Vital Signs: Vital Signs Date Time Temp Pulse Resp B/P (MAP) Pulse Ox O2 Delivery O2 Flow Rate FiO2 07/02/21 00:21 98.2 60 18 127/57 (80) 97 Room Air EKG: EKG: July 02, 2021; 01:00 sinus rhythm, 66bpm rate, J point elevations, ST elevations V2 and V3. appears to be high voltage. QRS interval 80ms; QT interval 384ms, QTc interval 404ms Radiology/Procedures: Radiology/Procedures: PROCEDURE: CT HEAD AND CERVICAL SPINE WO EXAM: 1. CT HEAD WITHOUT CONTRAST. 2. CT CERVICAL SPINE WITHOUT CONTRAST. HISTORY: Fall, head injury, pain. TECHNIQUE: Computed tomography of the head and cervical spine was performed without intravenous contrast. One or more of the following individualized dose reduction techniques were utilized for this examination: 1. Automated exposure control. 2. Adjustment of the mA and/or kV according to patient size. 3. Use of iterative reconstruction technique. COMPARISON: 12/11/2020. FINDINGS: There is no intracranial hemorrhage. Hypoattenuation within the periventricular white matter indicates mild chronic microangiopathic change. Chronic lacunar infarcts are suspected within the connor. Prominence of the lateral ventricles and hemispheric sulci indicates moderate atrophy. The visualized paranasal sinuses appear clear. The orbits are unremarkable. The temporal bones are unremarkable. The calvarium reveals no suspicious lesions. There is 4 mm anterolisthesis at C3-4 from facet osteoarthritis. There appears to be noninstrumented anterior fusion at C4-5. There is reversal of the normal cervical lordosis from C3 through C5. There is moderate osteoarthritis at C1/2. No fractures are identified. Degenerative disc disease is moderate to severe from C3 through C7 and at T2-3. Osteopenia is at least moderate. There is no prevertebral soft tissue swelling. At C2-3, there is a small posterior disc bulge. Left facet osteoarthritis is moderate. Left neural foraminal stenosis is moderate. At C3-4, there is a moderate posterior disc bulge. Central canal stenosis is moderate. Facet osteoarthritis is moderate to severe on the left with an erosive component. It is moderate on the right. Neural foraminal stenosis is moderate to severe bilaterally. At C4-5, there is a small posterior disc-osteophyte complex. Central canal stenosis appears mild. At C5-6, there is a moderate posterior disc-osteophyte complex. Uncovertebral osteoarthritis is moderate to severe on the right and moderate on the left. Neural foraminal stenosis is moderate to severe on the right. Central canal stenosis is mild. At C6-7, there is a moderate posterior disc-osteophyte complex. Uncovertebral osteoarthritis is moderate bilaterally. Neural foraminal stenosis is moderate bilaterally. Central canal stenosis appears mild. IMPRESSION: 1. No acute intracranial findings. 2. Moderate atrophy and mild chronic microangiopathic white matter change. 3. 4 mm anterolisthesis at C3-4 is secondary to facet osteoarthritis. Correlate to ensure stability. No fractures are identified. 4. Moderate to severe degenerative changes elsewhere result in central canal stenosis that is up to moderate at C3-4. Neural foraminal stenosis is up to moderate/severe. MRI could further characterize stenosis if there is persistent concern. Electronically signed by: Maggie Coello MD (07/02/2021 1:55 AM) [facility] Heart Score: C/O Chest Pain: N/A Course & Med Decision Making: Course & Med Decision Making Pertinent Labs and Imaging studies reviewed. (See chart for details) Patient is a 80yo Fe presenting to [facility] ED via EMS from [facility] for falling and head trauma. Hx of dementia. Patient's grandaughter called ED after reporting that her grandmother fell. No one saw the patient fall. Patient self-reported that she dropped food and fell out of her wheelchair while trying to pick it up, and fell on her head. Patient has abrasion on superior aspect of left foreheard near hairline and another abrasion just inferior to this one. Her ROS was negative. Patient history is limited secondary to Alzhemiers dementia. Patient is A&O x 2 PE is unremarkable except for facial abrasions. With patient's ANOx2, patient's advanced age and failure to thrive, and no one observing the traumatic event, it is pertinent to get basic labs of CBC, CMP to look for infection or electrolyte imbalance, EKG to look for any cardiac causes, Urinalysis for UTI, and Head and Neck CT imaging. Labs obtained and posted to chart. UA with signs of infection. Empiric antibiotic initiated. Renal insufficiency noted which is increased from prior per brief [employer] review. CT head/cervical spine without acute finding. Patient stable for discharge back to longterm with follow-up with PCP. Discussed findings and plan with patient and family, who acknowledge understanding and agreement. Kumar Disclaimer: Kumar Disclaimer: This electronic medical record was generated, in whole or in part, using a voice recognition dictation system. Departure Departure: Impression: Primary Impression: Fall Qualified Codes: W19.XXXA - Unspecified fall, initial encounter Additional Impressions: Facial abrasion Qualified Codes: S00.81XA - Abrasion of other part of head, initial encounter Urinary tract infection Qualified Codes: N30.00 - Acute cystitis without hematuria Renal insufficiency Disposition: HOME / SELF CARE / HOMELESS (back to longterm) Condition: STABLE Referrals: NAKITA PANTOJA MD (PCP) Patient Instructions: Abrasion, [id number], Chronic Renal Insufficiency, Facial or Scalp Contusion, [id number], Fall Prevention and Home Safety, [id number], Urinary Tract Infection, [id number] Additional Instructions: Do not soak your wound. You may shower. Clean wound daily with soap and water. Change dressing 2 times daily. Use over the counter antibiotic ointment with each dressing change. Please follow with your family physician regarding recheck of your renal function. Increase fluid hydration. Please take antibiotics as directed to completion. Scripts Cephalexin (CEPHALEXIN) 500 Mg Tablet 1 TAB PO TID for UTI for 7 Days, #21 TAB Prov: JOSUE ARITA DO 07/02/21 JOSUE ARITA DO Jul 02, 2021 01:04
[2021-07-02 01:33] LABS: CALCIUM 8.4 mg/dL (8.5-10.1); CREATININE 1.9 mg/dL (0.6-1.0); GFR 25.4
[2021-07-02 01:37] LABS: BACTERIA,URINE MANY /HPF (0-FEW); BILIRUBIN,URINE NEG (NEG); CLARITY,URINE CLEAR; COLOR,URINE YELLOW; GLUCOSE,URINE NEG (NEG); NITRITE,URINE POS (NEG); RBC,URINE 0 /HPF (0-2); SQUAMOUS EPITHELIAL CELL,UR MANY /LPF; UROBILINOGEN,URINE 0.2 mg/dL (0.2 mg/dL)
[2021-07-02 01:38] LABS: BASO % 0 % (0-3); EOS % 0 % (0-3); HEMOGLOBIN 10.1 g/dL (12.0-15.5); LYMPH # 1.3 x10^3/uL (1.0-4.8); LYMPH % 20 % (24-48); MEAN CORPUSCULAR HEMOGLOBIN 31 pg (25-35); MEAN CORPUSCULAR HGB CONC 33 g/dL (31-37); MEAN CORPUSCULAR VOLUME 95 fL (79-100); MONO # 0.7 x10^3/uL (0.0-1.1); MONO % 11 % (0-9); NEUT # 4.4 x10^3uL (1.8-7.7); NEUT % 68 % (31-73); PLATELET COUNT 197 x10^3/uL (140-400); RED BLOOD COUNT 3.26 x10^6/uL (3.50-5.40); RED CELL DISTRIBUTION WIDTH 14.4 % (11.5-14.5); WHITE BLOOD COUNT 6.5 x10^3/uL (4.0-11.0)
[2021-07-02 01:47] LABS: ALBUMIN 3.2 g/dL (3.4-5.0); ALBUMIN/GLOBULIN RATIO 0.9 (1.0-1.7); TOTAL BILIRUBIN 0.3 mg/dL (0.2-1.0); TOTAL PROTEIN 6.7 g/dL (6.4-8.2)
--- NOTE | 2021-07-02 01:57 | RAD ---
EXAM: 1. CT HEAD WITHOUT CONTRAST. 2. CT CERVICAL SPINE WITHOUT CONTRAST. HISTORY: Fall, head injury, pain. TECHNIQUE: Computed tomography of the head and cervical spine was performed without intravenous contr ast. One or more of the following individualized dose reduction techniques were utilized for this exa mination: 1. Automated exposure control. 2. Adjustment of the mA and/or kV according to patient size. 3. Use of iterative reconstruction technique. COMPARISON: 12/11/2020. FINDINGS: There is no intracranial hemorrhage. Hypoattenuation within the periventricular white felicity er indicates mild chronic microangiopathic change. Chronic lacunar infarcts are suspected within the connor. Prominence of the lateral ventricles and hemispheric sulci indicates moderate atrophy. The visualized paranasal sinuses appear clear. The orbits are unremarkable. The temporal bones are un remarkable. The calvarium reveals no suspicious lesions. There is 4 mm anterolisthesis at C3-4 from facet osteoarthritis. There appears to be noninstrumented anterior fusion at C4-5. There is reversal of the normal cervical lordosis from C3 through C5. There is moderate osteoarthritis at C1/2. No fractures are identified. Degenerative disc disease is moderat e to severe from C3 through C7 and at T2-3. Osteopenia is at least moderate. There is no prevertebral soft tissue swelling. At C2-3, there is a small posterior disc bulge. Left facet osteoarthritis is moderate. Left neural fo raminal stenosis is moderate. At C3-4, there is a moderate posterior disc bulge. Central canal stenosis is moderate. Facet osteoart hritis is moderate to severe on the left with an erosive component. It is moderate on the right. Neur al foraminal stenosis is moderate to severe bilaterally. At C4-5, there is a small posterior disc-osteophyte complex. Central canal stenosis appears mild. At C5-6, there is a moderate posterior disc-osteophyte complex. Uncovertebral osteoarthritis is moder ate to severe on the right and moderate on the left. Neural foraminal stenosis is moderate to severe on the right. Central canal stenosis is mild. At C6-7, there is a moderate posterior disc-osteophyte complex. Uncovertebral osteoarthritis is moder ate bilaterally. Neural foraminal stenosis is moderate bilaterally. Central canal stenosis appears mi ld. IMPRESSION: 1. No acute intracranial findings. 2. Moderate atrophy and mild chronic microangiopathic white matter change. 3. 4 mm anterolisthesis at C3-4 is secondary to facet osteoarthritis. Correlate to ensure stability. No fractures are identified. 4. Moderate to severe degenerative changes elsewhere result in central canal stenosis that is up to m oderate at C3-4. Neural foraminal stenosis is up to moderate/severe. MRI could further characterize s tenosis if there is persistent concern. Electronically signed by: Maggie Coello MD (07/02/2021 1:55 AM) [facility]
[2021-07-02] MEDS ORDERED: cefTRIAXone SODIUM 1 GM VIAL ONE (02:01)
[2021-07-02] MEDS ORDERED: IV NORMAL SALINE 50ML 50 ML ONE (02:02)
[2021-07-02] MEDS ORDERED: CEPH500T PO (02:06)
[2021-07-02] MEDS: NEOMY/BACITR/POLYMYXIN OINT PACKET. TP ONE (02:08)
[2021-07-02 02:38] VITALS: BP 138/52
--- NOTE | 2021-07-02 02:57 | EKG ---
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
== END 2021-07-02 02:40 | disposition home or self-care (01) ==
LOC: ER 00:21
DX: S00.81XA Abrasion of other part of head, initial encounter (principal); N28.9 Disorder of kidney and ureter, unspecified; N30.00 Acute cystitis without hematuria; F41.9 Anxiety disorder, unspecified; M19.90 Unspecified osteoarthritis, unspecified site; F32.9 Major depressive disorder, single episode, unspecified; G89.29 Other chronic pain; G30.9 Alzheimer's disease, unspecified; F02.80 Dementia in other diseases classified elsewhere, unspecified severity, without behavioral disturbance, psychotic disturbance, mood disturbance, and anxiety; W05.0XXA Fall from non-moving wheelchair, initial encounter; Y93.89 Activity, other specified; Y92.89 Other specified places as the place of occurrence of the external cause; Y99.8 Other external cause status
CPT/HCPCS: 36415; 70450; 72125; 80053; 81001; 82553; 83735; 84484; 85025; 87077; 87086; 87186; 93005; 96365; 99285; J0696